=== PATIENT | female | born 1960 | race Caucasian/White ===

== ENCOUNTER 2016-05-30 09:10 | Day surgery (SDC) | payer BC ==
[~2016-05-30] VITALS: Ht 160 cm; Wt 66.4 kg
[~2016-05-30 09:10] MED LIST: ALAVERT10 M1 PO; ASTHMACORT INHALER; BUDESONIDE1 POW; CIPRO; DOXYCYCLINE 10100 MG PO; LORTAB PO; NEBULIZER; PEPCID 20MG TAB20 MG PO; PHENERGAN25 MG RC; PREDNISONE20 MG PO; RT ADVAIR 128 DISKUS IH; UNIPHYL 400MG400 MG PO; [UNRECOGNIZED DRUG - OTHER]
[2016-05-30 10:27] VITALS: BP 115/68; PULSE 83; TEMP 97.7
[2016-05-30] MEDS ORDERED: IBU800 M1 PO (10:39)
[2016-05-30] MEDS ORDERED: ULTRAM 50MG TAB50 MG PO (10:39)
[2016-05-30] MEDS ORDERED: PULMICORT0.5 MG/2 M IH (10:40)
[2016-05-30] MEDS ORDERED: IPRATROPIUM BROM3 M1 IH (10:40)
[2016-05-30] MEDS ORDERED: WELLBUTRIN SR150 M1 PO (10:41)
[2016-05-30] MEDS ORDERED: DOXYCYCLINE HY100 MG PO (10:43)
[2016-05-30] MEDS ORDERED: PREDNISONE10 MG PO (10:43)
[2016-05-30] MEDS ORDERED: MUCINEX1200 MG PO (10:44)
[2016-05-30] MEDS ORDERED: ULTRAM ER100 MG PO (10:45)
[2016-05-30] MEDS ORDERED: AMITRIPTYLINE H10 M1 PO (10:45)
[2016-05-30] MEDS ORDERED: KLONOPIN 1MG1 MG PO (10:46)
[2016-05-30 11:24] VITALS: BP 125/76; PULSE 92
[2016-05-30 11:39] VITALS: BP 126/79; PULSE 83
[2016-05-30 11:54] VITALS: BP 124/78; PULSE 79
[2016-05-30 12:39] VITALS: BP 121/77; PULSE 84
== END 2016-05-30 12:50 | disposition home or self-care (01) ==
LOC: SDCO 09:10
DX: R06.02 Shortness of breath (principal); R05 Cough; R04.2 Hemoptysis
CPT/HCPCS: J2704; J2920; J7120

== ENCOUNTER → 2018-11-22 | Outpatient (CLI) | payer BC ==
[~2018-11-22] MED LIST changes: +AMITRIPTYLINE H10 M1 PO; +DOXYCYCLINE HY100 MG PO; +IBU800 M1 PO; +IPRATROPIUM BROM3 M1 IH; +KLONOPIN 1MG1 MG PO; +MUCINEX1200 MG PO; +PREDNISONE10 MG PO; +PULMICORT0.5 MG/2 M IH; +ULTRAM 50MG TAB50 MG PO; +ULTRAM ER100 MG PO; +WELLBUTRIN SR150 M1 PO
== END ==
LOC: COL.RAD 10:58
DX: M79.621 Pain in right upper arm (principal)